=== PATIENT | female | born 1955 | race Caucasian/White ===

== ENCOUNTER 2022-03-16 07:19 | Inpatient (IN) ==
[2022-03-16] MEDS ORDERED: DILTIAZEM 25 MG/5 ML VIAL IV ONE (07:25)
[2022-03-16] MEDS ORDERED: SODIUM CHLORIDE 0.9% 1,000 ML IV STA (07:29)
[2022-03-16] MEDS ORDERED: DILTIAZEM 25 MG/5 ML VIAL IV STA (07:29)
[2022-03-16] MEDS ORDERED: methylPREDNISolone SOD SUC 125 MG/2 ML VIAL IV STA (07:30)
[2022-03-16] MEDS ORDERED: DILTIAZEM 100 MG VIAL.ADD IV ONE (07:31)
[2022-03-16] MEDS ORDERED: methylPREDNISolone SOD SUC 125 MG/2 ML VIAL ONE (07:37)
[2022-03-16] MEDS: DILTIAZEM INJ 100 MG in SODIUM CHLORIDE 0.9% 100 ML IV SCH (07:41)
[2022-03-16 07:42] LABS: Basophils # 0.1 10*3/uL (0.0-0.2); Basophils % 0.9 % (0.0-0.8); Eosinophils # 0.2 10*3/uL (0.0-0.87); Eosinophils % 2.6 % (0.00-10.9); Hematocrit 45.1 VOL% (35.7-47.0); Hemoglobin 13.9 GM/DL (12.0-16.0); Immature Granulocytes % 0.4 %; Immature Granulocytes Absolute 0.03 #; Lymphocytes # 3.5 10*3/uL (1.4-4.0); Lymphocytes % 44.4 % (21.3-54.2); Mean Corpuscular HGB Conc 30.8 GM/DL (32-36); Mean Corpuscular Volume 93.6 FL (87-102); Mean Platelet Volume 9.9 FL (9.6-12.0); Monocytes # 0.3 10*3/uL (0.11-0.8); Monocytes % 3.8 % (1.7-12.7); Neutrophils % 47.9 % (38.7-73.9); Platelet Count 213 T/CUMM (130-400); Red Blood Count 4.82 MC/CUMM (3.8-5.5); Red Cell Distribution Width 13.2 % (9.3-17.3); White Blood Count 7.8 T/CUMM (4-12)
[2022-03-16 08:13] LABS: Albumin 3.6 G/DL (3.4-5.0); Bilirubin,Total 0.9 MG/DL (0.20-1.00); Osmolality,Calculated 291.1 MOS/KG (273-304); Potassium 3.7 MMOL/L (3.5-5.1); Thyroid Stimulating Hormone 0.872 uIU/ml (0.358-3.74)
[2022-03-16] MEDS ORDERED: propofoL 200 MG/20 ML VIAL IV ONE ×2 (08:31→09:24)
[2022-03-16] MEDS ORDERED: ONDANSETRON 4 MG/2 ML VIAL IV PRN (08:47)
[2022-03-16] MEDS ORDERED: MORPHINE 2 MG/1 ML SYRINGE IV PRN (08:47)
[2022-03-16] MEDS ORDERED: ALBUTEROL 2.5 MG/3 ML NEB RESP TX PRN (08:47)
[2022-03-16] MEDS ORDERED: HYDROmorphone 1 MG/1 ML SYRINGE IV PRN (09:31)
[2022-03-16] MEDS: PANTOPRAZOLE 40 MG TABLET PO SCH (11:51)
[2022-03-16] MEDS: ENOXAPARIN 40 MG/0.4 ML SYRINGE SUBCUT SCH (11:51)
[2022-03-16] MEDS: LACTATED RINGERS 1,000 ML IV SCH (11:51)
[2022-03-16] MEDS: KETOROLAC 15 MG/1 ML VIAL IV PRN ×2 (11:54→17:17)
[2022-03-16 12:32] LABS: Barbiturates Screen,Urine Negative (Negative); Benzodiazepines Screen,Urine Negative (Negative); Cannabinoid Screen,Urine Negative (Negative); Opiate Screen,Urine Positive (Negative); Phencyclidine Screen,Urine Negative (Negative)
[2022-03-16] MEDS: ALBUTEROL/IPRATROPIUM 3 ML NEB RESP TX SCH ×2 (13:24→19:45)
[2022-03-16] MEDS ORDERED: GLUCAGON 1 MG VIAL IM PRN (13:42)
[2022-03-16] MEDS ORDERED: DEXTROSE 10% 250 ML BAG IV PRN (13:44)
[2022-03-17] MEDS: ALBUTEROL/IPRATROPIUM 3 ML NEB RESP TX SCH ×4 (00:20→19:30)
[2022-03-17] MEDS: KETOROLAC 15 MG/1 ML VIAL IV PRN (00:46)
[2022-03-17 01:19] LABS: Arterial Base Excess iSTAT -10 MMOL/L (-2.5-2.5); Arterial Bicarbonate iSTAT 15.2 MMOL/L (20-26); Arterial O2 Saturation iSTAT 79 % (95-100); Arterial PCO2 iSTAT 31 MM HG (35-48); Arterial PO2 iSTAT 47 MM HG (80-95); Arterial Total CO2 iSTAT 16 MMO/L (23-27); Arterial pH iSTAT 7.299 (7.35-7.45)
[2022-03-17] MEDS ORDERED: METOPROLOL TARTRATE 5 MG/5 ML VIAL IV ONE ×2 (01:32→01:34)
[2022-03-17] MEDS ORDERED: MORPHINE 2 MG/1 ML SYRINGE ONE (01:42)
[2022-03-17] MEDS ORDERED: MORPHINE 2 MG/1 ML SYRINGE IV ONE (01:43)
[2022-03-17] MEDS: LACTATED RINGERS 1,000 ML IV SCH (02:04)
[2022-03-17 02:18] LABS: Basophils % 0.2 % (0.0-0.8); Eosinophils % 0.1 % (0.00-10.9); Hematocrit 48.9 VOL% (35.7-47.0); Hemoglobin 15.1 GM/DL (12.0-16.0); Immature Granulocytes % 0.5 %; Immature Granulocytes Absolute 0.08 #; Lymphocytes # 2.5 10*3/uL (1.4-4.0); Lymphocytes % 14.6 % (21.3-54.2); Mean Corpuscular HGB Conc 30.9 GM/DL (32-36); Mean Platelet Volume 10.5 FL (9.6-12.0); Monocytes % 5.9 % (1.7-12.7); Neutrophils % 78.7 % (38.7-73.9); Platelet Count 276 T/CUMM (130-400); Red Cell Distribution Width 13.2 % (9.3-17.3); White Blood Count 17.2 T/CUMM (4-12)
[2022-03-17] MEDS: MEROPENEM 500 MG in SODIUM CHLORIDE 0.9% 100 ML IV SCH ×2 (02:19→09:11)
[2022-03-17 02:20] LABS: Albumin 3.4 G/DL (3.4-5.0); Bilirubin,Total 0.7 MG/DL (0.20-1.00); Calcium 8.7 MG/DL (8.5-10.1); Osmolality,Calculated 288.5 MOS/KG (273-304); Potassium 3.9 MMOL/L (3.5-5.1); Total Protein 6.9 G/DL (6.4-8.2)
[2022-03-17] MEDS ORDERED: SODIUM BICARB INJ 50 MEQ in SODIUM CHLORIDE 0.45% 1,000 ML IV SCH (03:00)
[2022-03-17] MEDS ORDERED: SODIUM BICARBONATE 50 MEQ/50 ML VIAL IV ONE (04:21)
[2022-03-17] MEDS ORDERED: SODIUM CHLORIDE 0.9% 1,000 ML IV ONE (04:22)
[2022-03-17 04:34] LABS: Arterial Base Excess iSTAT -8 MMOL/L (-2.5-2.5); Arterial O2 Saturation iSTAT 93 % (95-100); Arterial PCO2 iSTAT 37 MM HG (35-48); Arterial PO2 iSTAT 72 MM HG (80-95); Arterial Total CO2 iSTAT 19 MMO/L (23-27)
[2022-03-17] MEDS: LEVOTHYROXINE 125 MCG TABLET PO SCH (05:50)
[2022-03-17] MEDS: SODIUM CHLORIDE 0.9% 1,000 ML IV SCH ×2 (05:51→08:32)
[2022-03-17 06:12] LABS: Basophils % 0.1 % (0.0-0.8); Eosinophils % 0.1 % (0.00-10.9); Hematocrit 41.3 VOL% (35.7-47.0); Hemoglobin 12.8 GM/DL (12.0-16.0); Immature Granulocytes % 0.6 %; Immature Granulocytes Absolute 0.09 #; Lymphocytes # 1.2 10*3/uL (1.4-4.0); Lymphocytes % 7.5 % (21.3-54.2); Mean Corpuscular Volume 92.6 FL (87-102); Mean Platelet Volume 10.4 FL (9.6-12.0); Monocytes # 1.2 10*3/uL (0.11-0.8); Neutrophils % 84.7 % (38.7-73.9); Platelet Count 250 T/CUMM (130-400); Red Blood Count 4.46 MC/CUMM (3.8-5.5); Red Cell Distribution Width 13.5 % (9.3-17.3); White Blood Count 16.3 T/CUMM (4-12)
[2022-03-17 06:27] LABS: Albumin 2.7 G/DL (3.4-5.0); Bilirubin,Total 0.5 MG/DL (0.20-1.00); Calcium 7.3 MG/DL (8.5-10.1); Osmolality,Calculated 290.1 MOS/KG (273-304); Potassium 4.2 MMOL/L (3.5-5.1); Total Protein 5.3 G/DL (6.4-8.2)
[2022-03-17] MEDS ORDERED: SODIUM CHLORIDE 0.9% 1,000 ML IV SCH (07:00)
[2022-03-17] MEDS ORDERED: FUROSEMIDE 40 MG/4 ML VIAL IV ONE (07:55)
[2022-03-17] MEDS: DILTIAZEM INJ 100 MG in SODIUM CHLORIDE 0.9% 100 ML IV SCH (08:28)
[2022-03-17] MEDS: PANTOPRAZOLE 40 MG TABLET PO SCH (08:58)
[2022-03-17] MEDS: amLODIPine 5 MG TABLET PO SCH (08:59)
[2022-03-17] MEDS: ENOXAPARIN 40 MG/0.4 ML SYRINGE SUBCUT SCH (08:59)
[2022-03-17] MEDS: NON-FORMULARY MEDICATION (Fluticasone-Umeclidin-Vilanter [Trelegy Ellipta] 200-62.5-25 mcg INH SCH (09:11)
[2022-03-17] MEDS ORDERED: NICOTINE 21 MG/24 HR PATCH TRANSDERM PRN (09:37)
[2022-03-17] MEDS ORDERED: DEXTROSE 50% 25 GM/50 ML VIAL IV PRN (09:42)
[2022-03-17] MEDS: AZITHROMYCIN INJ 500 MG in SODIUM CHLORIDE 0.9% 250 ML IV SCH (09:46)
[2022-03-17 09:59] LABS: Bilirubin,Urine Negative (Negative); Blood, Urine Moderate mg/dL (Negative); Glucose,Urine (UA) Negative (Negative); Ketones,Urine Negative (Negative); Nitrite,Urine Negative (Negative); Protein,Urine 100 mg/dL (Negative); Urine Appearance Clear (Clear); Urine Color Yellow (Yellow); Urine Urobilinogen 0.2 eU/dL (<2.0); Urine pH 5.5 (4.5-8.0)
[2022-03-17 10:03] LABS: Mucus,Urine Occasional /LPF (Occasional); RBC,Urine 70 /HPF (0-4); Squamous Epithelial Cell,Urine Occasional /HPF (0-10)
[2022-03-17 10:53] LABS: Arterial Base Excess iSTAT -5 MMOL/L (-2.5-2.5); Arterial Bicarbonate iSTAT 20.4 MMOL/L (20-26); Arterial O2 Saturation iSTAT 99 % (95-100); Arterial PCO2 iSTAT 39 MM HG (35-48); Arterial PO2 iSTAT 134 MM HG (80-95); Arterial Total CO2 iSTAT 22 MMO/L (23-27); Arterial pH iSTAT 7.324 (7.35-7.45)
[2022-03-17] MEDS: INSULIN LISPRO 100 UNIT/ML SUBCUT SCH ×3 (11:03→20:46)
[2022-03-17] MEDS: cefTRIAXone 1,000 MG in SODIUM CHLORIDE 0.9% 100 ML IV SCH (11:18)
[2022-03-17 15:32] LABS: Osmolality,Calculated 284.4 MOS/KG (273-304); Potassium 3.7 MMOL/L (3.5-5.1)
[2022-03-18] MEDS: ALBUTEROL/IPRATROPIUM 3 ML NEB RESP TX SCH ×4 (00:40→19:40)
[2022-03-18 04:04] LABS: Arterial Base Excess iSTAT -3 MMOL/L (-2.5-2.5); Arterial Bicarbonate iSTAT 20.8 MMOL/L (20-26); Arterial O2 Saturation iSTAT 89 % (95-100); Arterial PCO2 iSTAT 31 MM HG (35-48); Arterial PO2 iSTAT 53 MM HG (80-95); Arterial Total CO2 iSTAT 22 MMO/L (23-27); Arterial pH iSTAT 7.436 (7.35-7.45)
[2022-03-18 05:17] LABS: Basophils % 0.2 % (0.0-0.8); Eosinophils % 0.1 % (0.00-10.9); Hematocrit 38.2 VOL% (35.7-47.0); Hemoglobin 11.7 GM/DL (12.0-16.0); Immature Granulocytes % 0.5 %; Immature Granulocytes Absolute 0.05 #; Lymphocytes % 9.8 % (21.3-54.2); Mean Corpuscular HGB Conc 30.6 GM/DL (32-36); Mean Corpuscular Volume 92.5 FL (87-102); Mean Platelet Volume 10.5 FL (9.6-12.0); Monocytes # 0.8 10*3/uL (0.11-0.8); Monocytes % 7.2 % (1.7-12.7); Neutrophils % 82.2 % (38.7-73.9); Platelet Count 175 T/CUMM (130-400); Red Blood Count 4.13 MC/CUMM (3.8-5.5); Red Cell Distribution Width 13.5 % (9.3-17.3); White Blood Count 10.5 T/CUMM (4-12)
[2022-03-18 05:51] LABS: Albumin 2.8 G/DL (3.4-5.0); Bilirubin,Total 0.7 MG/DL (0.20-1.00); Calcium 8.1 MG/DL (8.5-10.1); Osmolality,Calculated 284.3 MOS/KG (273-304); Potassium 3.4 MMOL/L (3.5-5.1); Risk Ratio 3.24; Total Protein 5.7 G/DL (6.4-8.2); VLDL Cholesterol 26.6 MG/DL
[2022-03-18] MEDS: LEVOTHYROXINE 125 MCG TABLET PO SCH (06:14)
[2022-03-18] MEDS ORDERED: FUROSEMIDE 40 MG/4 ML VIAL IV ONE (06:34)
[2022-03-18] MEDS: methylPREDNISolone SOD SUC 40 MG/1 ML VIAL IV SCH ×3 (06:56→22:21)
[2022-03-18] MEDS: DILTIAZEM INJ 100 MG in SODIUM CHLORIDE 0.9% 100 ML IV SCH (08:10)
[2022-03-18] MEDS: INSULIN LISPRO 100 UNIT/ML SUBCUT SCH ×4 (09:02→21:23)
[2022-03-18] MEDS: NON-FORMULARY MEDICATION (Fluticasone-Umeclidin-Vilanter [Trelegy Ellipta] 200-62.5-25 mcg INH SCH (09:03)
[2022-03-18] MEDS: ENOXAPARIN 40 MG/0.4 ML SYRINGE SUBCUT SCH (09:06)
[2022-03-18] MEDS: cefTRIAXone 1,000 MG in SODIUM CHLORIDE 0.9% 100 ML IV SCH (09:06)
[2022-03-18] MEDS: PANTOPRAZOLE 40 MG TABLET PO SCH (09:07)
[2022-03-18] MEDS: AZITHROMYCIN INJ 500 MG in SODIUM CHLORIDE 0.9% 250 ML IV SCH (09:07)
[2022-03-18] MEDS: amLODIPine 5 MG TABLET PO SCH ×2 (09:07→09:09)
[2022-03-18 09:43] LABS: Arterial Base Excess iSTAT -10 MMOL/L (-2.5-2.5); Arterial Bicarbonate iSTAT 17.8 MMOL/L (20-26); Arterial O2 Saturation iSTAT 92 % (95-100); Arterial PCO2 iSTAT 43 MM HG (35-48); Arterial PO2 iSTAT 77 MM HG (80-95); Arterial Total CO2 iSTAT 19 MMO/L (23-27); Arterial pH iSTAT 7.228 (7.35-7.45)
[2022-03-18] MEDS: POTASSIUM CHLORIDE 20 MEQ TABLET PO PRN ×2 (14:32→16:15)
[2022-03-18] MEDS ORDERED: DILTIAZEM 30 MG TABLET PO SCH (15:00)
[2022-03-18] MEDS: METOPROLOL TARTRATE 25 MG TABLET PO SCH ×2 (15:32→21:14)
[2022-03-19 04:17] LABS: Arterial Base Excess iSTAT 2 MMOL/L (-2.5-2.5); Arterial O2 Saturation iSTAT 99 % (95-100); Arterial PCO2 iSTAT 35 MM HG (35-48); Arterial PO2 iSTAT 121 MM HG (80-95); Arterial Total CO2 iSTAT 26 MMO/L (23-27); Arterial pH iSTAT 7.467 (7.35-7.45)
[2022-03-19 05:26] LABS: Basophils % 0.1 % (0.0-0.8); Hematocrit 37.5 VOL% (35.7-47.0); Hemoglobin 11.9 GM/DL (12.0-16.0); Immature Granulocytes % 0.4 %; Immature Granulocytes Absolute 0.04 #; Lymphocytes # 0.9 10*3/uL (1.4-4.0); Lymphocytes % 10.1 % (21.3-54.2); Mean Corpuscular HGB Conc 31.7 GM/DL (32-36); Mean Platelet Volume 11.1 FL (9.6-12.0); Monocytes # 0.5 10*3/uL (0.11-0.8); Monocytes % 5.8 % (1.7-12.7); Neutrophils % 83.6 % (38.7-73.9); Platelet Count 180 T/CUMM (130-400); Red Blood Count 4.12 MC/CUMM (3.8-5.5); Red Cell Distribution Width 13.5 % (9.3-17.3); White Blood Count 8.9 T/CUMM (4-12)
[2022-03-19] MEDS: LEVOTHYROXINE 125 MCG TABLET PO SCH (05:38)
[2022-03-19 05:51] LABS: Osmolality,Calculated 285.3 MOS/KG (273-304)
[2022-03-19] MEDS: methylPREDNISolone SOD SUC 40 MG/1 ML VIAL IV SCH ×3 (06:53→22:06)
[2022-03-19] MEDS: ALBUTEROL/IPRATROPIUM 3 ML NEB RESP TX SCH ×4 (07:30→19:20)
[2022-03-19] MEDS: cefTRIAXone 1,000 MG in SODIUM CHLORIDE 0.9% 100 ML IV SCH (09:27)
[2022-03-19] MEDS: AZITHROMYCIN INJ 500 MG in SODIUM CHLORIDE 0.9% 250 ML IV SCH (09:27)
[2022-03-19] MEDS: INSULIN LISPRO 100 UNIT/ML SUBCUT SCH ×4 (09:28→20:37)
[2022-03-19] MEDS: PANTOPRAZOLE 40 MG TABLET PO SCH (09:29)
[2022-03-19] MEDS: NON-FORMULARY MEDICATION (Fluticasone-Umeclidin-Vilanter [Trelegy Ellipta] 200-62.5-25 mcg INH SCH (09:29)
[2022-03-19] MEDS: ENOXAPARIN 40 MG/0.4 ML SYRINGE SUBCUT SCH (09:29)
[2022-03-19] MEDS: METOPROLOL SUCCINATE XL 25 MG TABLET PO SCH ×2 (09:29→20:37)
[2022-03-20] MEDS: ALBUTEROL/IPRATROPIUM 3 ML NEB RESP TX SCH ×4 (00:40→19:47)
[2022-03-20 05:17] LABS: Basophils % 0.1 % (0.0-0.8); Hematocrit 38.4 VOL% (35.7-47.0); Immature Granulocytes % 0.3 %; Immature Granulocytes Absolute 0.03 #; Lymphocytes % 11.3 % (21.3-54.2); Mean Corpuscular HGB Conc 31.3 GM/DL (32-36); Mean Corpuscular Volume 92.1 FL (87-102); Monocytes # 0.5 10*3/uL (0.11-0.8); Monocytes % 5.8 % (1.7-12.7); Neutrophils % 82.5 % (38.7-73.9); Platelet Count 194 T/CUMM (130-400); Red Blood Count 4.17 MC/CUMM (3.8-5.5); Red Cell Distribution Width 13.4 % (9.3-17.3); White Blood Count 9.2 T/CUMM (4-12)
[2022-03-20 05:33] LABS: Calcium 8.5 MG/DL (8.5-10.1); Osmolality,Calculated 287.3 MOS/KG (273-304)
[2022-03-20] MEDS: LEVOTHYROXINE 125 MCG TABLET PO SCH (05:43)
[2022-03-20] MEDS: methylPREDNISolone SOD SUC 40 MG/1 ML VIAL IV SCH ×3 (06:00→23:07)
[2022-03-20] MEDS: INSULIN LISPRO 100 UNIT/ML SUBCUT SCH ×4 (08:01→23:12)
[2022-03-20] MEDS: METOPROLOL SUCCINATE XL 25 MG TABLET PO SCH ×2 (09:35→21:40)
[2022-03-20] MEDS: PANTOPRAZOLE 40 MG TABLET PO SCH (09:35)
[2022-03-20] MEDS: FUROSEMIDE 40 MG TABLET PO SCH (09:35)
[2022-03-20] MEDS: ENOXAPARIN 40 MG/0.4 ML SYRINGE SUBCUT SCH (09:37)
[2022-03-20] MEDS: cefTRIAXone 1,000 MG in SODIUM CHLORIDE 0.9% 100 ML IV SCH (09:38)
[2022-03-20] MEDS: AZITHROMYCIN INJ 500 MG in SODIUM CHLORIDE 0.9% 250 ML IV SCH (10:41)
[2022-03-20] MEDS: NON-FORMULARY MEDICATION (Fluticasone-Umeclidin-Vilanter [Trelegy Ellipta] 200-62.5-25 mcg INH SCH (10:42)
[2022-03-21] MEDS: ALBUTEROL/IPRATROPIUM 3 ML NEB RESP TX SCH ×4 (00:37→19:30)
[2022-03-21 06:04] LABS: Hematocrit 38.7 VOL% (35.7-47.0); Hemoglobin 12.1 GM/DL (12.0-16.0); Immature Granulocytes % 0.5 %; Immature Granulocytes Absolute 0.04 #; Lymphocytes % 12.1 % (21.3-54.2); Mean Corpuscular HGB Conc 31.3 GM/DL (32-36); Mean Corpuscular Volume 92.8 FL (87-102); Mean Platelet Volume 11.3 FL (9.6-12.0); Monocytes # 0.4 10*3/uL (0.11-0.8); Monocytes % 5.6 % (1.7-12.7); Neutrophils % 81.8 % (38.7-73.9); Platelet Count 202 T/CUMM (130-400); Red Blood Count 4.17 MC/CUMM (3.8-5.5); Red Cell Distribution Width 13.5 % (9.3-17.3); White Blood Count 7.8 T/CUMM (4-12)
[2022-03-21] MEDS: methylPREDNISolone SOD SUC 40 MG/1 ML VIAL IV SCH ×2 (06:04→15:15)
[2022-03-21] MEDS: LEVOTHYROXINE 125 MCG TABLET PO SCH (06:04)
[2022-03-21 06:22] LABS: Calcium 8.6 MG/DL (8.5-10.1); Osmolality,Calculated 297.7 MOS/KG (273-304); Potassium 4.4 MMOL/L (3.5-5.1)
[2022-03-21] MEDS: FUROSEMIDE 40 MG TABLET PO SCH (10:08)
[2022-03-21] MEDS: INSULIN LISPRO 100 UNIT/ML SUBCUT SCH ×4 (10:08→21:50)
[2022-03-21] MEDS: NON-FORMULARY MEDICATION (Fluticasone-Umeclidin-Vilanter [Trelegy Ellipta] 200-62.5-25 mcg INH SCH (10:09)
[2022-03-21] MEDS: cefTRIAXone 1,000 MG in SODIUM CHLORIDE 0.9% 100 ML IV SCH (10:09)
[2022-03-21] MEDS: PANTOPRAZOLE 40 MG TABLET PO SCH (10:09)
[2022-03-21] MEDS: METOPROLOL SUCCINATE XL 25 MG TABLET PO SCH (10:09)
[2022-03-21] MEDS: ENOXAPARIN 40 MG/0.4 ML SYRINGE SUBCUT SCH (10:10)
[2022-03-21] MEDS: AZITHROMYCIN INJ 500 MG in SODIUM CHLORIDE 0.9% 250 ML IV SCH (11:34)
[2022-03-21] MEDS: SACUBITRIL/VALSARTAN 49-51 MG TABLET PO SCH (21:50)
[2022-03-22] MEDS: METOPROLOL SUCCINATE XL 25 MG TABLET PO SCH ×3 (00:21→21:24)
[2022-03-22] MEDS: ALBUTEROL/IPRATROPIUM 3 ML NEB RESP TX SCH ×4 (00:25→19:15)
[2022-03-22] MEDS: methylPREDNISolone SOD SUC 40 MG/1 ML VIAL IV SCH ×4 (00:31→22:47)
[2022-03-22 04:58] LABS: Basophils % 0.1 % (0.0-0.8); Eosinophils % 0.1 % (0.00-10.9); Hematocrit 39.5 VOL% (35.7-47.0); Hemoglobin 12.4 GM/DL (12.0-16.0); Immature Granulocytes % 0.5 %; Immature Granulocytes Absolute 0.05 #; Lymphocytes # 1.2 10*3/uL (1.4-4.0); Lymphocytes % 13.3 % (21.3-54.2); Mean Corpuscular HGB Conc 31.4 GM/DL (32-36); Mean Corpuscular Volume 91.4 FL (87-102); Mean Platelet Volume 11.2 FL (9.6-12.0); Monocytes # 0.7 10*3/uL (0.11-0.8); Monocytes % 7.4 % (1.7-12.7); Neutrophils % 78.6 % (38.7-73.9); Platelet Count 211 T/CUMM (130-400); Red Blood Count 4.32 MC/CUMM (3.8-5.5); Red Cell Distribution Width 13.4 % (9.3-17.3); White Blood Count 9.1 T/CUMM (4-12)
[2022-03-22 05:09] LABS: Calcium 8.3 MG/DL (8.5-10.1); Osmolality,Calculated 289.3 MOS/KG (273-304); Potassium 4.1 MMOL/L (3.5-5.1)
[2022-03-22] MEDS: LEVOTHYROXINE 125 MCG TABLET PO SCH (05:56)
[2022-03-22] MEDS: INSULIN LISPRO 100 UNIT/ML SUBCUT SCH ×4 (08:05→21:47)
[2022-03-22] MEDS: ENOXAPARIN 40 MG/0.4 ML SYRINGE SUBCUT SCH (08:58)
[2022-03-22] MEDS: FUROSEMIDE 40 MG TABLET PO SCH (08:59)
[2022-03-22] MEDS: SACUBITRIL/VALSARTAN 49-51 MG TABLET PO SCH ×2 (08:59→21:25)
[2022-03-22] MEDS: NON-FORMULARY MEDICATION (Fluticasone-Umeclidin-Vilanter [Trelegy Ellipta] 200-62.5-25 mcg INH SCH (08:59)
[2022-03-22] MEDS: PANTOPRAZOLE 40 MG TABLET PO SCH (08:59)
[2022-03-22] MEDS: cefTRIAXone 1,000 MG in SODIUM CHLORIDE 0.9% 100 ML IV SCH (09:03)
[2022-03-22] MEDS: AZITHROMYCIN INJ 500 MG in SODIUM CHLORIDE 0.9% 250 ML IV SCH (09:56)
[2022-03-22] MEDS ORDERED: HYDROmorphone 1 MG/1 ML SYRINGE IV PRN (13:49)
[2022-03-23] MEDS: ALBUTEROL/IPRATROPIUM 3 ML NEB RESP TX SCH ×4 (00:29→19:21)
[2022-03-23] MEDS: LEVOTHYROXINE 125 MCG TABLET PO SCH (06:07)
[2022-03-23] MEDS: methylPREDNISolone SOD SUC 40 MG/1 ML VIAL IV SCH ×2 (06:10→17:13)
[2022-03-23] MEDS: INSULIN LISPRO 100 UNIT/ML SUBCUT SCH ×4 (09:25→20:20)
[2022-03-23] MEDS: ENOXAPARIN 40 MG/0.4 ML SYRINGE SUBCUT SCH (09:28)
[2022-03-23] MEDS: PANTOPRAZOLE 40 MG TABLET PO SCH (09:28)
[2022-03-23] MEDS: METOPROLOL SUCCINATE XL 25 MG TABLET PO SCH ×2 (09:28→20:24)
[2022-03-23] MEDS: NON-FORMULARY MEDICATION (Fluticasone-Umeclidin-Vilanter [Trelegy Ellipta] 200-62.5-25 mcg INH SCH (09:28)
[2022-03-23] MEDS: FUROSEMIDE 40 MG TABLET PO SCH (09:28)
[2022-03-23] MEDS: SACUBITRIL/VALSARTAN 49-51 MG TABLET PO SCH ×2 (09:28→20:24)
[2022-03-23] MEDS: cefTRIAXone 1,000 MG in SODIUM CHLORIDE 0.9% 100 ML IV SCH (09:29)
[2022-03-23] MEDS: AZITHROMYCIN INJ 500 MG in SODIUM CHLORIDE 0.9% 250 ML IV SCH (10:20)
[2022-03-24] MEDS: ALBUTEROL/IPRATROPIUM 3 ML NEB RESP TX SCH ×4 (00:17→19:10)
[2022-03-24 05:28] LABS: Basophils % 0.1 % (0.0-0.8); Hematocrit 42.3 VOL% (35.7-47.0); Hemoglobin 13.5 GM/DL (12.0-16.0); Immature Granulocytes % 0.7 %; Immature Granulocytes Absolute 0.08 #; Lymphocytes # 2.1 10*3/uL (1.4-4.0); Mean Corpuscular HGB Conc 31.9 GM/DL (32-36); Mean Platelet Volume 10.6 FL (9.6-12.0); Monocytes # 0.9 10*3/uL (0.11-0.8); Monocytes % 7.7 % (1.7-12.7); Neutrophils % 72.5 % (38.7-73.9); Platelet Count 265 T/CUMM (130-400); Red Cell Distribution Width 13.4 % (9.3-17.3)
[2022-03-24 05:47] LABS: Calcium 8.2 MG/DL (8.5-10.1); Osmolality,Calculated 287.3 MOS/KG (273-304); Potassium 4.4 MMOL/L (3.5-5.1)
[2022-03-24] MEDS: methylPREDNISolone SOD SUC 40 MG/1 ML VIAL IV SCH ×2 (06:08→17:21)
[2022-03-24] MEDS: LEVOTHYROXINE 125 MCG TABLET PO SCH (06:08)
[2022-03-24] MEDS: NON-FORMULARY MEDICATION (Fluticasone-Umeclidin-Vilanter [Trelegy Ellipta] 200-62.5-25 mcg INH SCH (09:30)
[2022-03-24] MEDS: METOPROLOL SUCCINATE XL 25 MG TABLET PO SCH ×2 (09:31→21:19)
[2022-03-24] MEDS: cefTRIAXone 1,000 MG in SODIUM CHLORIDE 0.9% 100 ML IV SCH (09:31)
[2022-03-24] MEDS: SACUBITRIL/VALSARTAN 49-51 MG TABLET PO SCH ×2 (09:31→21:18)
[2022-03-24] MEDS: FUROSEMIDE 40 MG TABLET PO SCH (09:31)
[2022-03-24] MEDS: ENOXAPARIN 40 MG/0.4 ML SYRINGE SUBCUT SCH (09:31)
[2022-03-24] MEDS: PANTOPRAZOLE 40 MG TABLET PO SCH (09:31)
[2022-03-24] MEDS: INSULIN LISPRO 100 UNIT/ML SUBCUT SCH ×4 (09:38→21:19)
[2022-03-24] MEDS: AZITHROMYCIN INJ 500 MG in SODIUM CHLORIDE 0.9% 250 ML IV SCH (10:18)
[2022-03-25] MEDS: ALBUTEROL/IPRATROPIUM 3 ML NEB RESP TX SCH ×4 (00:06→19:27)
[2022-03-25 05:20] LABS: Basophils % 0.2 % (0.0-0.8); Eosinophils % 0.3 % (0.00-10.9); Hematocrit 44.6 VOL% (35.7-47.0); Hemoglobin 13.9 GM/DL (12.0-16.0); Immature Granulocytes % 1.1 %; Immature Granulocytes Absolute 0.11 #; Lymphocytes # 1.8 10*3/uL (1.4-4.0); Lymphocytes % 17.6 % (21.3-54.2); Mean Corpuscular HGB Conc 31.2 GM/DL (32-36); Mean Corpuscular Volume 91.6 FL (87-102); Mean Platelet Volume 9.9 FL (9.6-12.0); Monocytes # 0.9 10*3/uL (0.11-0.8); Monocytes % 8.4 % (1.7-12.7); Neutrophils % 72.4 % (38.7-73.9); Platelet Count 287 T/CUMM (130-400); Red Blood Count 4.87 MC/CUMM (3.8-5.5); Red Cell Distribution Width 13.4 % (9.3-17.3); White Blood Count 10.4 T/CUMM (4-12)
[2022-03-25] MEDS: LEVOTHYROXINE 125 MCG TABLET PO SCH (05:43)
[2022-03-25] MEDS: methylPREDNISolone SOD SUC 40 MG/1 ML VIAL IV SCH ×3 (05:44→21:10)
[2022-03-25 05:47] LABS: Calcium 9.2 MG/DL (8.5-10.1); Osmolality,Calculated 285.4 MOS/KG (273-304); Potassium 4.4 MMOL/L (3.5-5.1)
[2022-03-25] MEDS: INSULIN LISPRO 100 UNIT/ML SUBCUT SCH ×4 (07:57→21:11)
[2022-03-25] MEDS: SACUBITRIL/VALSARTAN 49-51 MG TABLET PO SCH ×2 (08:42→21:09)
[2022-03-25] MEDS: FUROSEMIDE 40 MG TABLET PO SCH (08:43)
[2022-03-25] MEDS: METOPROLOL SUCCINATE XL 25 MG TABLET PO SCH ×2 (08:43→21:10)
[2022-03-25] MEDS: PANTOPRAZOLE 40 MG TABLET PO SCH (08:43)
[2022-03-25] MEDS: ENOXAPARIN 40 MG/0.4 ML SYRINGE SUBCUT SCH ×2 (08:43→08:45)
[2022-03-25] MEDS: NON-FORMULARY MEDICATION (Fluticasone-Umeclidin-Vilanter [Trelegy Ellipta] 200-62.5-25 mcg INH SCH (08:43)
[2022-03-25] MEDS ORDERED: GLUCAGON 1 MG VIAL IM PRN (12:27)
[2022-03-25] MEDS ORDERED: DEXTROSE 50% 25 GM/50 ML VIAL IV PRN (12:27)
[2022-03-25] MEDS ORDERED: DOXYCYCLINE HYCLATE INJ 200 MG, LIDOCAINE 1% INJ 20 ML in STERILE WATER INJ 30 ML INTRAPLEUR ONE (14:00)
[2022-03-26] MEDS: ALBUTEROL/IPRATROPIUM 3 ML NEB RESP TX SCH ×4 (00:07→19:42)
[2022-03-26] MEDS: LEVOTHYROXINE 125 MCG TABLET PO SCH (05:34)
[2022-03-26 06:26] LABS: Basophils % 0.1 % (0.0-0.8); Eosinophils % 0.1 % (0.00-10.9); Hematocrit 47.5 VOL% (35.7-47.0); Hemoglobin 14.8 GM/DL (12.0-16.0); Immature Granulocytes % 0.9 %; Immature Granulocytes Absolute 0.12 #; Lymphocytes # 1.7 10*3/uL (1.4-4.0); Lymphocytes % 12.2 % (21.3-54.2); Mean Corpuscular HGB Conc 31.2 GM/DL (32-36); Mean Corpuscular Volume 92.2 FL (87-102); Mean Platelet Volume 9.9 FL (9.6-12.0); Monocytes % 6.9 % (1.7-12.7); Neutrophils % 79.8 % (38.7-73.9); Platelet Count 334 T/CUMM (130-400); Red Blood Count 5.15 MC/CUMM (3.8-5.5); Red Cell Distribution Width 13.7 % (9.3-17.3); White Blood Count 14.1 T/CUMM (4-12)
[2022-03-26 06:45] LABS: Calcium 8.9 MG/DL (8.5-10.1); Osmolality,Calculated 283.7 MOS/KG (273-304); Potassium 4.7 MMOL/L (3.5-5.1)
[2022-03-26] MEDS: INSULIN LISPRO 100 UNIT/ML SUBCUT SCH ×4 (08:23→20:53)
[2022-03-26] MEDS: SACUBITRIL/VALSARTAN 49-51 MG TABLET PO SCH ×2 (09:41→20:53)
[2022-03-26] MEDS: METOPROLOL SUCCINATE XL 25 MG TABLET PO SCH ×2 (09:41→20:54)
[2022-03-26] MEDS: FUROSEMIDE 40 MG TABLET PO SCH (09:41)
[2022-03-26] MEDS: ENOXAPARIN 40 MG/0.4 ML SYRINGE SUBCUT SCH (09:41)
[2022-03-26] MEDS: PANTOPRAZOLE 40 MG TABLET PO SCH (09:41)
[2022-03-26] MEDS: DAPAGLIFLOZIN 10 MG TABLET PO SCH (09:41)
[2022-03-26] MEDS: methylPREDNISolone SOD SUC 40 MG/1 ML VIAL IV SCH ×2 (09:42→21:30)
[2022-03-26] MEDS: NON-FORMULARY MEDICATION (Fluticasone-Umeclidin-Vilanter [Trelegy Ellipta] 200-62.5-25 mcg INH SCH (09:42)
[2022-03-27] MEDS: ALBUTEROL/IPRATROPIUM 3 ML NEB RESP TX SCH ×4 (00:52→19:10)
[2022-03-27] MEDS: LEVOTHYROXINE 125 MCG TABLET PO SCH (05:35)
[2022-03-27] MEDS: INSULIN LISPRO 100 UNIT/ML SUBCUT SCH ×4 (07:53→21:00)
[2022-03-27] MEDS: SACUBITRIL/VALSARTAN 49-51 MG TABLET PO SCH ×2 (08:42→20:59)
[2022-03-27] MEDS: PANTOPRAZOLE 40 MG TABLET PO SCH (08:42)
[2022-03-27] MEDS: FUROSEMIDE 40 MG TABLET PO SCH (08:42)
[2022-03-27] MEDS: DAPAGLIFLOZIN 10 MG TABLET PO SCH (08:42)
[2022-03-27] MEDS: METOPROLOL SUCCINATE XL 25 MG TABLET PO SCH ×2 (08:42→20:59)
[2022-03-27] MEDS: ENOXAPARIN 40 MG/0.4 ML SYRINGE SUBCUT SCH (08:43)
[2022-03-27] MEDS: NON-FORMULARY MEDICATION (Fluticasone-Umeclidin-Vilanter [Trelegy Ellipta] 200-62.5-25 mcg INH SCH (08:45)
[2022-03-27] MEDS: methylPREDNISolone SOD SUC 40 MG/1 ML VIAL IV SCH (09:07)
[2022-03-28] MEDS: ALBUTEROL/IPRATROPIUM 3 ML NEB RESP TX SCH ×4 (00:15→18:55)
[2022-03-28 05:25] LABS: Calcium 8.7 MG/DL (8.5-10.1); Osmolality,Calculated 292.3 MOS/KG (273-304); Potassium 3.9 MMOL/L (3.5-5.1)
[2022-03-28] MEDS: LEVOTHYROXINE 125 MCG TABLET PO SCH (05:34)
[2022-03-28] MEDS: SACUBITRIL/VALSARTAN 49-51 MG TABLET PO SCH ×2 (09:15→20:46)
[2022-03-28] MEDS: ENOXAPARIN 40 MG/0.4 ML SYRINGE SUBCUT SCH (09:15)
[2022-03-28] MEDS: DAPAGLIFLOZIN 10 MG TABLET PO SCH (09:15)
[2022-03-28] MEDS: METOPROLOL SUCCINATE XL 25 MG TABLET PO SCH ×2 (09:16→20:47)
[2022-03-28] MEDS: CHOLECALCIFEROL 5,000 UNIT TABLET PO SCH (09:16)
[2022-03-28] MEDS: PANTOPRAZOLE 40 MG TABLET PO SCH (09:16)
[2022-03-28] MEDS: INSULIN LISPRO 100 UNIT/ML SUBCUT SCH ×4 (09:16→20:46)
[2022-03-28] MEDS: predniSONE 20 MG TABLET PO SCH (09:16)
[2022-03-28] MEDS: FUROSEMIDE 40 MG TABLET PO SCH (09:16)
[2022-03-28] MEDS: NON-FORMULARY MEDICATION (Fluticasone-Umeclidin-Vilanter [Trelegy Ellipta] 200-62.5-25 mcg INH SCH (09:18)
[2022-03-29] MEDS: ALBUTEROL/IPRATROPIUM 3 ML NEB RESP TX SCH ×4 (00:10→19:35)
[2022-03-29] MEDS: LEVOTHYROXINE 125 MCG TABLET PO SCH (05:30)
[2022-03-29] MEDS: INSULIN LISPRO 100 UNIT/ML SUBCUT SCH ×4 (08:02→22:13)
[2022-03-29] MEDS: PANTOPRAZOLE 40 MG TABLET PO SCH (08:59)
[2022-03-29] MEDS: ENOXAPARIN 40 MG/0.4 ML SYRINGE SUBCUT SCH (09:00)
[2022-03-29] MEDS: CHOLECALCIFEROL 5,000 UNIT TABLET PO SCH (09:00)
[2022-03-29] MEDS: predniSONE 20 MG TABLET PO SCH (09:00)
[2022-03-29] MEDS: DAPAGLIFLOZIN 10 MG TABLET PO SCH (09:57)
[2022-03-29] MEDS: NON-FORMULARY MEDICATION (Fluticasone-Umeclidin-Vilanter [Trelegy Ellipta] 200-62.5-25 mcg INH SCH (09:58)
[2022-03-29] MEDS: SACUBITRIL/VALSARTAN 49-51 MG TABLET PO SCH ×2 (10:19→21:36)
[2022-03-29] MEDS: FUROSEMIDE 40 MG TABLET PO SCH (10:19)
[2022-03-29] MEDS: METOPROLOL SUCCINATE XL 25 MG TABLET PO SCH ×2 (10:20→21:37)
[2022-03-30] MEDS: ALBUTEROL/IPRATROPIUM 3 ML NEB RESP TX SCH ×4 (00:24→19:30)
[2022-03-30] MEDS: LEVOTHYROXINE 125 MCG TABLET PO SCH (06:10)
[2022-03-30] MEDS: INSULIN LISPRO 100 UNIT/ML SUBCUT SCH ×3 (07:38→19:07)
[2022-03-30] MEDS: CHOLECALCIFEROL 5,000 UNIT TABLET PO SCH (08:48)
[2022-03-30] MEDS: predniSONE 20 MG TABLET PO SCH (08:48)
[2022-03-30] MEDS: ENOXAPARIN 40 MG/0.4 ML SYRINGE SUBCUT SCH (08:49)
[2022-03-30] MEDS: SACUBITRIL/VALSARTAN 49-51 MG TABLET PO SCH ×2 (08:49→21:45)
[2022-03-30] MEDS: PANTOPRAZOLE 40 MG TABLET PO SCH (08:49)
[2022-03-30] MEDS: METOPROLOL SUCCINATE XL 25 MG TABLET PO SCH (08:49)
[2022-03-30] MEDS: DAPAGLIFLOZIN 10 MG TABLET PO SCH (08:49)
[2022-03-30] MEDS: NON-FORMULARY MEDICATION (Fluticasone-Umeclidin-Vilanter [Trelegy Ellipta] 200-62.5-25 mcg INH SCH (08:50)
[2022-03-31] MEDS: ALBUTEROL/IPRATROPIUM 3 ML NEB RESP TX SCH ×4 (00:18→19:40)
[2022-03-31] MEDS: METOPROLOL SUCCINATE XL 25 MG TABLET PO SCH ×3 (00:44→22:05)
[2022-03-31] MEDS: INSULIN LISPRO 100 UNIT/ML SUBCUT SCH ×5 (00:44→20:39)
[2022-03-31] MEDS: LEVOTHYROXINE 125 MCG TABLET PO SCH (06:10)
[2022-03-31 06:33] LABS: Basophils % 0.3 % (0.0-0.8); Eosinophils # 0.4 10*3/uL (0.0-0.87); Eosinophils % 5.7 % (0.00-10.9); Hemoglobin 12.9 GM/DL (12.0-16.0); Immature Granulocytes % 0.7 %; Immature Granulocytes Absolute 0.05 #; Lymphocytes # 2.1 10*3/uL (1.4-4.0); Lymphocytes % 28.6 % (21.3-54.2); Mean Corpuscular HGB Conc 31.5 GM/DL (32-36); Mean Corpuscular Volume 92.1 FL (87-102); Mean Platelet Volume 9.4 FL (9.6-12.0); Monocytes # 0.7 10*3/uL (0.11-0.8); Monocytes % 9.4 % (1.7-12.7); Neutrophils % 55.3 % (38.7-73.9); Platelet Count 223 T/CUMM (130-400); Red Blood Count 4.45 MC/CUMM (3.8-5.5); Red Cell Distribution Width 13.6 % (9.3-17.3); White Blood Count 7.2 T/CUMM (4-12)
[2022-03-31 06:48] LABS: Calcium 8.4 MG/DL (8.5-10.1); Osmolality,Calculated 290.7 MOS/KG (273-304); Potassium 3.8 MMOL/L (3.5-5.1)
[2022-03-31] MEDS: POTASSIUM CHLORIDE 20 MEQ TABLET PO PRN (08:05)
[2022-03-31] MEDS: CHOLECALCIFEROL 5,000 UNIT TABLET PO SCH (08:05)
[2022-03-31] MEDS: predniSONE 20 MG TABLET PO SCH (08:05)
[2022-03-31] MEDS: PANTOPRAZOLE 40 MG TABLET PO SCH (08:05)
[2022-03-31] MEDS: DAPAGLIFLOZIN 10 MG TABLET PO SCH (08:06)
[2022-03-31] MEDS: SACUBITRIL/VALSARTAN 49-51 MG TABLET PO SCH ×2 (08:06→20:34)
[2022-03-31] MEDS: ENOXAPARIN 40 MG/0.4 ML SYRINGE SUBCUT SCH (08:06)
[2022-03-31] MEDS: NON-FORMULARY MEDICATION (Fluticasone-Umeclidin-Vilanter [Trelegy Ellipta] 200-62.5-25 mcg INH SCH (08:07)
[2022-04-01] MEDS: ALBUTEROL/IPRATROPIUM 3 ML NEB RESP TX SCH ×4 (01:03→19:58)
[2022-04-01] MEDS: LEVOTHYROXINE 125 MCG TABLET PO SCH (06:43)
[2022-04-01] MEDS: predniSONE 20 MG TABLET PO SCH (09:10)
[2022-04-01] MEDS: CHOLECALCIFEROL 5,000 UNIT TABLET PO SCH (09:10)
[2022-04-01] MEDS: ENOXAPARIN 40 MG/0.4 ML SYRINGE SUBCUT SCH (09:10)
[2022-04-01] MEDS: DAPAGLIFLOZIN 10 MG TABLET PO SCH (09:10)
[2022-04-01] MEDS: PANTOPRAZOLE 40 MG TABLET PO SCH (09:10)
[2022-04-01] MEDS: NON-FORMULARY MEDICATION (Fluticasone-Umeclidin-Vilanter [Trelegy Ellipta] 200-62.5-25 mcg INH SCH (09:13)
[2022-04-01] MEDS: INSULIN LISPRO 100 UNIT/ML SUBCUT SCH ×4 (09:40→21:18)
[2022-04-01] MEDS: SACUBITRIL/VALSARTAN 49-51 MG TABLET PO SCH ×2 (09:40→21:17)
[2022-04-01] MEDS: METOPROLOL SUCCINATE XL 25 MG TABLET PO SCH ×2 (09:40→21:19)
[2022-04-02] MEDS: ALBUTEROL/IPRATROPIUM 3 ML NEB RESP TX SCH ×4 (00:50→19:12)
[2022-04-02] MEDS: LEVOTHYROXINE 125 MCG TABLET PO SCH (06:42)
[2022-04-02] MEDS: INSULIN LISPRO 100 UNIT/ML SUBCUT SCH ×4 (07:57→21:20)
[2022-04-02] MEDS: SACUBITRIL/VALSARTAN 49-51 MG TABLET PO SCH ×2 (08:45→21:18)
[2022-04-02] MEDS: PANTOPRAZOLE 40 MG TABLET PO SCH (08:46)
[2022-04-02] MEDS: ENOXAPARIN 40 MG/0.4 ML SYRINGE SUBCUT SCH (08:46)
[2022-04-02] MEDS: DAPAGLIFLOZIN 10 MG TABLET PO SCH (08:46)
[2022-04-02] MEDS: predniSONE 20 MG TABLET PO SCH (08:46)
[2022-04-02] MEDS: METOPROLOL SUCCINATE XL 25 MG TABLET PO SCH ×2 (08:46→21:18)
[2022-04-02] MEDS: NON-FORMULARY MEDICATION (Fluticasone-Umeclidin-Vilanter [Trelegy Ellipta] 200-62.5-25 mcg INH SCH (08:47)
[2022-04-02] MEDS: CHOLECALCIFEROL 5,000 UNIT TABLET PO SCH (11:06)
[2022-04-03] MEDS: ALBUTEROL/IPRATROPIUM 3 ML NEB RESP TX SCH ×4 (00:33→19:23)
[2022-04-03] MEDS: LEVOTHYROXINE 125 MCG TABLET PO SCH (06:01)
[2022-04-03] MEDS: INSULIN LISPRO 100 UNIT/ML SUBCUT SCH ×4 (08:21→22:00)
[2022-04-03] MEDS: SACUBITRIL/VALSARTAN 49-51 MG TABLET PO SCH ×2 (08:57→20:57)
[2022-04-03] MEDS: PANTOPRAZOLE 40 MG TABLET PO SCH (08:57)
[2022-04-03] MEDS: predniSONE 20 MG TABLET PO SCH (08:57)
[2022-04-03] MEDS: CHOLECALCIFEROL 5,000 UNIT TABLET PO SCH (08:57)
[2022-04-03] MEDS: DAPAGLIFLOZIN 10 MG TABLET PO SCH (08:57)
[2022-04-03] MEDS: METOPROLOL SUCCINATE XL 25 MG TABLET PO SCH ×2 (08:57→20:58)
[2022-04-03] MEDS: NON-FORMULARY MEDICATION (Fluticasone-Umeclidin-Vilanter [Trelegy Ellipta] 200-62.5-25 mcg INH SCH (08:57)
[2022-04-03] MEDS: ENOXAPARIN 40 MG/0.4 ML SYRINGE SUBCUT SCH (08:58)
[2022-04-04] MEDS: ALBUTEROL/IPRATROPIUM 3 ML NEB RESP TX SCH ×3 (00:30→13:30)
[2022-04-04] MEDS: LEVOTHYROXINE 125 MCG TABLET PO SCH (05:52)
[2022-04-04] MEDS: INSULIN LISPRO 100 UNIT/ML SUBCUT SCH ×3 (07:50→16:43)
[2022-04-04] MEDS: DAPAGLIFLOZIN 10 MG TABLET PO SCH (08:45)
[2022-04-04] MEDS: predniSONE 20 MG TABLET PO SCH (08:45)
[2022-04-04] MEDS: CHOLECALCIFEROL 5,000 UNIT TABLET PO SCH (08:45)
[2022-04-04] MEDS: ENOXAPARIN 40 MG/0.4 ML SYRINGE SUBCUT SCH (08:46)
[2022-04-04] MEDS: PANTOPRAZOLE 40 MG TABLET PO SCH (08:46)
[2022-04-04] MEDS: METOPROLOL SUCCINATE XL 25 MG TABLET PO SCH (08:46)
[2022-04-04] MEDS: NON-FORMULARY MEDICATION (Fluticasone-Umeclidin-Vilanter [Trelegy Ellipta] 200-62.5-25 mcg INH SCH (08:55)
[2022-04-04] MEDS: SACUBITRIL/VALSARTAN 49-51 MG TABLET PO SCH (09:09)
[2022-04-04 12:38] VITALS: BP 91/52
== END 2022-04-04 16:32 | disposition home health service (06) | DRG 199 ==
LOC: EDBD → EDUNIT# → N.ED 07:19 → SUATTDRO 08:47 → N.EDINP 08:47 → N.CC 09:19 → N.3E 03-18 15:47
PROVIDERS: ADMIT Family Medicine; ATTEND Internal Medicine

== ENCOUNTER 2022-05-30 18:23 | Inpatient (IN) ==
[2022-05-30] MEDS ORDERED: ONDANSETRON 4 MG/2 ML VIAL IV STA (19:03)
[2022-05-30] MEDS ORDERED: methylPREDNISolone SOD SUC 125 MG/2 ML VIAL IV STA (19:03)
[2022-05-30] MEDS ORDERED: ALBUTEROL/IPRATROPIUM 3 ML NEB RESP TX STA (19:03)
[2022-05-30] MEDS ORDERED: SODIUM CHLORIDE 0.9% 1,000 ML IV STA (19:03)
[2022-05-30] MEDS ORDERED: ADENOSINE 6 MG/2 ML VIAL ONE (19:09)
[2022-05-30] MEDS ORDERED: DILTIAZEM 25 MG/5 ML VIAL IV ONE (19:11)
[2022-05-30 19:14] LABS: Basophils % 0.2 % (0.0-0.8); Hematocrit 41.9 VOL% (35.7-47.0); Hemoglobin 13.2 GM/DL (12.0-16.0); Immature Granulocytes % 1.2 %; Immature Granulocytes Absolute 0.27 #; Lymphocytes # 0.9 10*3/uL (1.4-4.0); Lymphocytes % 4.1 % (21.3-54.2); Mean Corpuscular HGB Conc 31.5 GM/DL (32-36); Mean Corpuscular Volume 89.7 FL (87-102); Mean Platelet Volume 9.3 FL (9.6-12.0); Monocytes # 0.4 10*3/uL (0.11-0.8); Monocytes % 1.9 % (1.7-12.7); Neutrophils % 92.6 % (38.7-73.9); Platelet Count 322 T/CUMM (130-400); Red Blood Count 4.67 MC/CUMM (3.8-5.5); Red Cell Distribution Width 14.4 % (9.3-17.3); White Blood Count 22.7 T/CUMM (4-12)
[2022-05-30] MEDS ORDERED: DILTIAZEM 25 MG/5 ML VIAL IV STA (19:16)
[2022-05-30] MEDS ORDERED: PIPERACILLIN/TAZOBACTAM 3,375 MG in SODIUM CHLORIDE 0.9% 100 ML IV STA (19:30)
[2022-05-30 19:33] LABS: Alanine Aminotransferase 14 U/L (13-56); Alkaline Phosphatase 90 U/L (45-117); Aspartate Amino Transferase 14 U/L (0-37); Blood Urea Nitrogen 22 MG/DL (7-18); Calcium 8.9 MG/DL (8.5-10.1); Carbon Dioxide 21 MMOL/L (21-32); Chloride 101 MMOL/L (98-107); Glucose 128 MG/DL (74-106); Osmolality,Calculated 272.2 MOS/KG (273-304); Potassium 3.7 MMOL/L (3.5-5.1); Sodium 134 MMOL/L (136-145); Total Protein 6.7 G/DL (6.4-8.2)
[2022-05-30 19:36] LABS: Band Neutrophils 7 % (0-10); Lymphocytes 7 % (20-55); Total Cells Counted 100
[2022-05-30 19:37] LABS: Platelet Estimate Adequate
[2022-05-30] MEDS ORDERED: SODIUM CHLORIDE 0.9% 1,400 ML IV ONE (19:37)
[2022-05-30 20:15] LABS: Arterial Base Excess iSTAT -6 MMOL/L (-2.5-2.5); Arterial Bicarbonate iSTAT 17.2 MMOL/L (20-26); Arterial O2 Saturation iSTAT 91 % (95-100); Arterial PCO2 iSTAT 27 MM HG (35-48); Arterial PO2 iSTAT 58 MM HG (80-95); Arterial Total CO2 iSTAT 18 MMO/L (23-27); Arterial pH iSTAT 7.416 (7.35-7.45)
[2022-05-30] MEDS ORDERED: GLUCAGON 1 MG VIAL IM PRN (20:48)
[2022-05-30] MEDS ORDERED: DEXTROSE 10% 250 ML BAG IV PRN (20:48)
[2022-05-30] MEDS ORDERED: ONDANSETRON 4 MG/2 ML VIAL IV PRN (20:48)
[2022-05-30] MEDS ORDERED: MORPHINE 2 MG/1 ML SYRINGE IV PRN (20:48)
[2022-05-30] MEDS ORDERED: SODIUM CHLORIDE 0.9% 1,000 ML IV SCH (21:00)
[2022-05-30] MEDS ORDERED: POTASSIUM CHLORIDE 20 MEQ TABLET PO ONE (21:16)
[2022-05-30 21:23] LABS: Bacteria,Urine Occasional /HPF (Few); Mucus,Urine Occasional /LPF (Occasional); RBC,Urine 40-45 /HPF (0-4); Squamous Epithelial Cell,Urine Occasional /HPF (0-10)
[2022-05-30 21:24] LABS: Bilirubin,Urine Negative (Negative); Blood, Urine Large mg/dL (Negative); Glucose,Urine (UA) >=1000 mg/dL (Negative); Ketones,Urine Negative (Negative); Nitrite,Urine Negative (Negative); Protein,Urine >=300 mg/dL (Negative); Urine Appearance Clear (Clear); Urine Color Yellow (Yellow); Urine Specific Gravity 1.015 (1.001-1.035); Urine Urobilinogen 0.2 eU/dL (<2.0); Urine pH 5.5 (4.5-8.0)
[2022-05-30] MEDS: VANCOMYCIN INJ 750 MG in SODIUM CHLORIDE 0.9% 250 ML IV SCH (22:03)
[2022-05-31] MEDS: ALBUTEROL/IPRATROPIUM 3 ML NEB RESP TX SCH ×4 (00:30→19:24)
[2022-05-31 05:08] LABS: Basophils % 0.2 % (0.0-0.8); Hematocrit 32.7 VOL% (35.7-47.0); Hemoglobin 10.3 GM/DL (12.0-16.0); Immature Granulocytes % 2.4 %; Immature Granulocytes Absolute 0.41 #; Lymphocytes # 0.6 10*3/uL (1.4-4.0); Lymphocytes % 3.5 % (21.3-54.2); Mean Corpuscular HGB Conc 31.5 GM/DL (32-36); Mean Corpuscular Volume 91.9 FL (87-102); Mean Platelet Volume 9.4 FL (9.6-12.0); Monocytes # 0.3 10*3/uL (0.11-0.8); Neutrophils % 91.9 % (38.7-73.9); Platelet Count 234 T/CUMM (130-400); Red Blood Count 3.56 MC/CUMM (3.8-5.5); Red Cell Distribution Width 14.2 % (9.3-17.3); White Blood Count 16.8 T/CUMM (4-12)
[2022-05-31 05:28] LABS: Albumin 2.2 G/DL (3.4-5.0); Bilirubin,Total 1.2 MG/DL (0.20-1.00); Calcium 7.8 MG/DL (8.5-10.1); Osmolality,Calculated 284.1 MOS/KG (273-304); Potassium 4.2 MMOL/L (3.5-5.1); Total Protein 5.8 G/DL (6.4-8.2)
[2022-05-31] MEDS: LEVOTHYROXINE 75 MCG TABLET PO SCH (05:50)
[2022-05-31] MEDS: PIPERACILLIN/TAZOBACTAM 3,375 MG in SODIUM CHLORIDE 0.9% 100 ML IV SCH ×3 (05:50→20:21)
[2022-05-31 06:39] LABS: Band Neutrophils 3 % (0-10); Lymphocytes 3 % (20-55); Platelet Estimate Adequate; Total Cells Counted 100
[2022-05-31] MEDS: CHOLECALCIFEROL 5,000 UNIT TABLET PO SCH (09:02)
[2022-05-31] MEDS: predniSONE 10 MG TABLET PO SCH (09:02)
[2022-05-31] MEDS: PANTOPRAZOLE 40 MG TABLET PO SCH (09:02)
[2022-05-31] MEDS: AZITHROMYCIN INJ 500 MG in SODIUM CHLORIDE 0.9% 250 ML IV SCH (09:02)
[2022-05-31] MEDS: PRASUGREL 10 MG TABLET PO SCH (09:02)
[2022-05-31] MEDS: ASPIRIN EC 81 MG TABLET PO SCH (09:02)
[2022-05-31] MEDS: NON-FORMULARY MEDICATION (Fluticasone-Umeclidin-Vilanter [Trelegy Ellipta] 200-62.5-25 mcg INH SCH (09:05)
[2022-05-31 15:18] LABS: Hematocrit 31.3 VOL% (35.7-47.0); Hemoglobin 9.7 GM/DL (12.0-16.0)
[2022-05-31] MEDS: VANCOMYCIN INJ 750 MG in SODIUM CHLORIDE 0.9% 250 ML IV SCH (15:59)
[2022-05-31] MEDS: ENOXAPARIN 40 MG/0.4 ML SYRINGE SUBCUT SCH (20:21)
[2022-05-31] MEDS: ROSUVASTATIN 20 MG TABLET PO SCH (20:21)
[2022-05-31 22:38] LABS: Hematocrit 31.3 VOL% (35.7-47.0); Hemoglobin 9.8 GM/DL (12.0-16.0)
[2022-06-01] MEDS: ALBUTEROL/IPRATROPIUM 3 ML NEB RESP TX SCH ×4 (00:45→19:00)
[2022-06-01] MEDS: PIPERACILLIN/TAZOBACTAM 3,375 MG in SODIUM CHLORIDE 0.9% 100 ML IV SCH ×3 (04:13→21:50)
[2022-06-01 04:38] LABS: Basophils % 0.1 % (0.0-0.8); Hematocrit 32.1 VOL% (35.7-47.0); Hemoglobin 9.8 GM/DL (12.0-16.0); Immature Granulocytes % 0.8 %; Immature Granulocytes Absolute 0.11 #; Lymphocytes % 7.7 % (21.3-54.2); Mean Corpuscular HGB Conc 30.5 GM/DL (32-36); Mean Corpuscular Volume 93.3 FL (87-102); Mean Platelet Volume 9.8 FL (9.6-12.0); Monocytes # 0.6 10*3/uL (0.11-0.8); Monocytes % 4.4 % (1.7-12.7); Platelet Count 245 T/CUMM (130-400); Red Blood Count 3.44 MC/CUMM (3.8-5.5); Red Cell Distribution Width 14.4 % (9.3-17.3); White Blood Count 13.5 T/CUMM (4-12)
[2022-06-01] MEDS: LEVOTHYROXINE 75 MCG TABLET PO SCH (05:59)
[2022-06-01] MEDS: AZITHROMYCIN INJ 500 MG in SODIUM CHLORIDE 0.9% 250 ML IV SCH (09:00)
[2022-06-01] MEDS: ASPIRIN EC 81 MG TABLET PO SCH (09:01)
[2022-06-01] MEDS: PRASUGREL 10 MG TABLET PO SCH (09:01)
[2022-06-01] MEDS: PANTOPRAZOLE 40 MG TABLET PO SCH (09:01)
[2022-06-01] MEDS: predniSONE 10 MG TABLET PO SCH (09:01)
[2022-06-01] MEDS: CHOLECALCIFEROL 5,000 UNIT TABLET PO SCH (09:01)
[2022-06-01] MEDS: NON-FORMULARY MEDICATION (Fluticasone-Umeclidin-Vilanter [Trelegy Ellipta] 200-62.5-25 mcg INH SCH (09:02)
[2022-06-01 11:53] LABS: Calcium 8.1 MG/DL (8.5-10.1); Osmolality,Calculated 289.8 MOS/KG (273-304); Potassium 3.8 MMOL/L (3.5-5.1)
[2022-06-01] MEDS: VANCOMYCIN INJ 750 MG in SODIUM CHLORIDE 0.9% 250 ML IV SCH (11:58)
[2022-06-01] MEDS: METOPROLOL SUCCINATE XL 25 MG TABLET PO SCH ×2 (15:26→21:50)
[2022-06-01] MEDS: guaiFENesin/DM ER 600-30 MG TABLET PO SCH (21:50)
[2022-06-01] MEDS: ENOXAPARIN 40 MG/0.4 ML SYRINGE SUBCUT SCH (21:50)
[2022-06-01] MEDS: ROSUVASTATIN 20 MG TABLET PO SCH (21:50)
[2022-06-02] MEDS: ALBUTEROL/IPRATROPIUM 3 ML NEB RESP TX SCH ×4 (00:05→19:51)
[2022-06-02 04:38] LABS: Basophils % 0.3 % (0.0-0.8); Eosinophils % 0.2 % (0.00-10.9); Hematocrit 37.3 VOL% (35.7-47.0); Hemoglobin 11.4 GM/DL (12.0-16.0); Immature Granulocytes % 1.3 %; Immature Granulocytes Absolute 0.11 #; Lymphocytes # 1.4 10*3/uL (1.4-4.0); Lymphocytes % 16.5 % (21.3-54.2); Mean Corpuscular HGB Conc 30.6 GM/DL (32-36); Mean Corpuscular Volume 92.8 FL (87-102); Mean Platelet Volume 9.4 FL (9.6-12.0); Monocytes # 0.5 10*3/uL (0.11-0.8); Monocytes % 5.8 % (1.7-12.7); Neutrophils % 75.9 % (38.7-73.9); Platelet Count 293 T/CUMM (130-400); Red Blood Count 4.02 MC/CUMM (3.8-5.5); Red Cell Distribution Width 14.3 % (9.3-17.3); White Blood Count 8.7 T/CUMM (4-12)
[2022-06-02 05:01] LABS: Albumin 2.3 G/DL (3.4-5.0); Bilirubin,Total 0.6 MG/DL (0.20-1.00); Calcium 8.6 MG/DL (8.5-10.1); Osmolality,Calculated 287.7 MOS/KG (273-304); Potassium 3.1 MMOL/L (3.5-5.1); Total Protein 6.2 G/DL (6.4-8.2)
[2022-06-02] MEDS: PIPERACILLIN/TAZOBACTAM 3,375 MG in SODIUM CHLORIDE 0.9% 100 ML IV SCH ×3 (06:17→21:50)
[2022-06-02] MEDS: LEVOTHYROXINE 75 MCG TABLET PO SCH (06:17)
[2022-06-02] MEDS: METOPROLOL SUCCINATE XL 25 MG TABLET PO SCH ×2 (09:40→21:48)
[2022-06-02] MEDS: predniSONE 10 MG TABLET PO SCH (09:40)
[2022-06-02] MEDS: guaiFENesin/DM ER 600-30 MG TABLET PO SCH ×2 (09:40→21:48)
[2022-06-02] MEDS: PRASUGREL 10 MG TABLET PO SCH (09:40)
[2022-06-02] MEDS: AZITHROMYCIN INJ 500 MG in SODIUM CHLORIDE 0.9% 250 ML IV SCH (09:40)
[2022-06-02] MEDS: ASPIRIN EC 81 MG TABLET PO SCH (09:40)
[2022-06-02] MEDS: PANTOPRAZOLE 40 MG TABLET PO SCH (09:40)
[2022-06-02] MEDS: CHOLECALCIFEROL 5,000 UNIT TABLET PO SCH (09:40)
[2022-06-02] MEDS: NON-FORMULARY MEDICATION (Fluticasone-Umeclidin-Vilanter [Trelegy Ellipta] 200-62.5-25 mcg INH SCH (09:41)
[2022-06-02] MEDS: POTASSIUM CHLORIDE 20 MEQ TABLET PO PRN ×4 (11:06→18:49)
[2022-06-02 15:51] LABS: Hematocrit 36.9 VOL% (35.7-47.0); Hemoglobin 11.7 GM/DL (12.0-16.0)
[2022-06-02] MEDS: PANTOPRAZOLE 40 MG VIAL IV SCH (17:01)
[2022-06-02] MEDS ORDERED: INFLUENZA VIRUS VACCINE 0.5 ML SYRINGE IM ONE (19:00)
[2022-06-02] MEDS: ROSUVASTATIN 20 MG TABLET PO SCH (21:48)
[2022-06-03] MEDS: ALBUTEROL/IPRATROPIUM 3 ML NEB RESP TX SCH ×3 (00:12→13:12)
[2022-06-03] MEDS: PIPERACILLIN/TAZOBACTAM 3,375 MG in SODIUM CHLORIDE 0.9% 100 ML IV SCH (04:37)
[2022-06-03 04:48] LABS: Basophils % 0.2 % (0.0-0.8); Eosinophils # 0.1 10*3/uL (0.0-0.87); Eosinophils % 1.1 % (0.00-10.9); Hemoglobin 10.2 GM/DL (12.0-16.0); Immature Granulocytes % 1.3 %; Immature Granulocytes Absolute 0.13 #; Lymphocytes # 1.7 10*3/uL (1.4-4.0); Lymphocytes % 16.9 % (21.3-54.2); Mean Corpuscular HGB Conc 31.9 GM/DL (32-36); Mean Corpuscular Volume 90.4 FL (87-102); Mean Platelet Volume 9.4 FL (9.6-12.0); Monocytes # 0.7 10*3/uL (0.11-0.8); Monocytes % 7.2 % (1.7-12.7); Neutrophils % 73.3 % (38.7-73.9); Platelet Count 265 T/CUMM (130-400); Red Blood Count 3.54 MC/CUMM (3.8-5.5); White Blood Count 10.3 T/CUMM (4-12)
[2022-06-03 05:08] LABS: Calcium 8.3 MG/DL (8.5-10.1); Osmolality,Calculated 280.1 MOS/KG (273-304); Potassium 3.9 MMOL/L (3.5-5.1)
[2022-06-03] MEDS: LEVOTHYROXINE 75 MCG TABLET PO SCH (05:52)
[2022-06-03] MEDS: ASPIRIN EC 81 MG TABLET PO SCH (10:56)
[2022-06-03] MEDS: predniSONE 10 MG TABLET PO SCH (10:56)
[2022-06-03] MEDS: PRASUGREL 10 MG TABLET PO SCH (10:56)
[2022-06-03] MEDS: guaiFENesin/DM ER 600-30 MG TABLET PO SCH (10:56)
[2022-06-03] MEDS: METOPROLOL SUCCINATE XL 25 MG TABLET PO SCH (10:57)
[2022-06-03] MEDS: CHOLECALCIFEROL 5,000 UNIT TABLET PO SCH (10:57)
[2022-06-03] MEDS: NON-FORMULARY MEDICATION (Fluticasone-Umeclidin-Vilanter [Trelegy Ellipta] 200-62.5-25 mcg INH SCH (11:10)
[2022-06-03] MEDS: PANTOPRAZOLE 40 MG VIAL IV SCH (11:19)
[2022-06-03] MEDS: AZITHROMYCIN INJ 500 MG in SODIUM CHLORIDE 0.9% 250 ML IV SCH (11:29)
[2022-06-03 12:16] VITALS: BP 139/80
== END 2022-06-03 14:37 | disposition home health service (06) | DRG 193 ==
LOC: N.ED 18:23 → SUATTDRO 20:48 → N.EDINP 20:48 → N.TELEN 22:45
PROVIDERS: ADMIT Internal Medicine Geriatric Medicine; ATTEND Internal Medicine

== ENCOUNTER 2022-09-18 13:02 | Observation (INO) ==
[2022-09-18 13:29] LABS: Basophils # 0.1 10*3/uL (0.0-0.2); Basophils % 0.6 % (0.0-0.8); Eosinophils # 0.1 10*3/uL (0.0-0.87); Eosinophils % 0.7 % (0.00-10.9); Hematocrit 38.1 VOL% (35.7-47.0); Hemoglobin 11.6 GM/DL (12.0-16.0); Immature Granulocytes % 0.6 %; Immature Granulocytes Absolute 0.06 #; Lymphocytes # 1.5 10*3/uL (1.4-4.0); Lymphocytes % 15.4 % (21.3-54.2); Mean Corpuscular HGB Conc 30.4 GM/DL (32-36); Mean Corpuscular Volume 83.6 FL (87-102); Mean Platelet Volume 9.8 FL (9.6-12.0); Monocytes # 0.5 10*3/uL (0.11-0.8); Monocytes % 4.9 % (1.7-12.7); Neutrophils % 77.8 % (38.7-73.9); Platelet Count 272 T/CUMM (130-400); Red Blood Count 4.56 MC/CUMM (3.8-5.5); White Blood Count 9.7 T/CUMM (4-12)
[2022-09-18] MEDS ORDERED: ASPIRIN 325 MG TABLET PO STA (13:30)
[2022-09-18] MEDS ORDERED: METOPROLOL TARTRATE 5 MG/5 ML VIAL IV STA ×2 (13:31→13:49)
[2022-09-18 13:50] LABS: Bilirubin,Total 0.8 MG/DL (0.20-1.00); Calcium 9.2 MG/DL (8.5-10.1); Potassium 3.4 MMOL/L (3.5-5.1); Total Protein 7.3 G/DL (6.4-8.2)
[2022-09-18] MEDS ORDERED: CALCIUM CARBONATE CHEW 500 MG TABLET PO PRN (14:51)
[2022-09-18] MEDS ORDERED: SIMETHICONE CHEW 125 MG TABLET PO PRN (14:51)
[2022-09-18] MEDS ORDERED: ACETAMINOPHEN 325 MG TABLET PO PRN (14:51)
[2022-09-18] MEDS ORDERED: ZALEPLON 5 MG CAPSULE PO PRN (14:51)
[2022-09-18] MEDS ORDERED: diphenhydrAMINE CAP 25 MG CAPSULE PO PRN (14:51)
[2022-09-18] MEDS ORDERED: DOCUSATE SODIUM 100 MG CAPSULE PO PRN (14:51)
[2022-09-18] MEDS ORDERED: ONDANSETRON 4 MG/2 ML VIAL IV PRN (14:51)
[2022-09-18] MEDS ORDERED: LACTULOSE 20 GM/30 ML UDCUP PO PRN (14:51)
[2022-09-18] MEDS ORDERED: MORPHINE 2 MG/1 ML SYRINGE IV PRN (14:51)
[2022-09-18] MEDS ORDERED: ALUMINUM/MAGNES/SIMETH MAX STR 30 ML UDCUP PO PRN (14:51)
[2022-09-18] MEDS ORDERED: ALBUTEROL 2.5 MG/3 ML NEB RESP TX PRN (14:55)
[2022-09-18] MEDS ORDERED: MAGNESIUM SULF RIDER 2 GM/50 ML PREMIX IV ONE (15:09)
[2022-09-18] MEDS ORDERED: POTASSIUM CHLORIDE 20 MEQ TABLET PO STA (15:09)
[2022-09-18 15:22] LABS: INR 0.9; PT Patient Result 10.1 SECS (10.1-12.1); Partial Thromboplastin Time 23.6 SECS (23.7-32.9)
[2022-09-18] MEDS ORDERED: ENOXAPARIN 40 MG/0.4 ML SYRINGE SUBCUT SCH (21:00)
[2022-09-18] MEDS ORDERED: ROSUVASTATIN 20 MG TABLET PO SCH (21:00)
[2022-09-18] MEDS ORDERED: METOPROLOL SUCCINATE XL 25 MG TABLET PO SCH (21:00)
[2022-09-18] MEDS: METOPROLOL SUCCINATE XL 50 MG TABLET PO SCH (21:16)
[2022-09-18] MEDS: SACUBITRIL/VALSARTAN 49-51 MG TABLET PO SCH (21:24)
[2022-09-19 05:52] LABS: Basophils # 0.1 10*3/uL (0.0-0.2); Basophils % 0.7 % (0.0-0.8); Eosinophils # 0.2 10*3/uL (0.0-0.87); Eosinophils % 2.2 % (0.00-10.9); Hematocrit 34.6 VOL% (35.7-47.0); Hemoglobin 10.1 GM/DL (12.0-16.0); Immature Granulocytes % 0.3 %; Immature Granulocytes Absolute 0.02 #; Lymphocytes # 2.5 10*3/uL (1.4-4.0); Lymphocytes % 36.3 % (21.3-54.2); Mean Corpuscular HGB Conc 29.2 GM/DL (32-36); Mean Corpuscular Volume 85.9 FL (87-102); Mean Platelet Volume 9.8 FL (9.6-12.0); Monocytes # 0.6 10*3/uL (0.11-0.8); Monocytes % 9.4 % (1.7-12.7); Neutrophils % 51.1 % (38.7-73.9); Platelet Count 263 T/CUMM (130-400); Red Blood Count 4.03 MC/CUMM (3.8-5.5); Red Cell Distribution Width 16.1 % (9.3-17.3); White Blood Count 6.8 T/CUMM (4-12)
[2022-09-19 07:55] LABS: Calcium 8.3 MG/DL (8.5-10.1); Osmolality,Calculated 292.7 MOS/KG (273-304); Potassium 4.6 MMOL/L (3.5-5.1); Risk Ratio 1.76; Thyroid Stimulating Hormone 0.188 uIU/ml (0.358-3.74); VLDL Cholesterol 9.2 MG/DL
[2022-09-19] MEDS: SACUBITRIL/VALSARTAN 49-51 MG TABLET PO SCH (08:38)
[2022-09-19] MEDS: METOPROLOL SUCCINATE XL 50 MG TABLET PO SCH (08:39)
[2022-09-19] MEDS ORDERED: PANTOPRAZOLE 40 MG TABLET PO SCH (09:00)
[2022-09-19] MEDS ORDERED: CHOLECALCIFEROL 5,000 UNIT TABLET PO SCH (09:00)
[2022-09-19] MEDS ORDERED: ASPIRIN EC 81 MG TABLET PO SCH (09:00)
[2022-09-19] MEDS ORDERED: LEVOTHYROXINE 75 MCG TABLET PO SCH (09:00)
[2022-09-19] MEDS ORDERED: PRASUGREL 10 MG TABLET PO SCH (09:00)
[2022-09-19] MEDS ORDERED: predniSONE 10 MG TABLET PO SCH (09:00)
[2022-09-19] MEDS ORDERED: NON-FORMULARY MEDICATION (Fluticasone-Umeclidin-Vilanter [Trelegy Ellipta] 200-62.5-25 mcg INH SCH (09:00)
[2022-09-19] MEDS ORDERED: DAPAGLIFLOZIN 10 MG TABLET PO SCH (09:00)
[2022-09-19] MEDS ORDERED: FUROSEMIDE 40 MG TABLET PO SCH (09:00)
[2022-09-19 11:36] VITALS: BP 88/32
[2022-09-20] MEDS ORDERED: LEVOTHYROXINE 50 MCG TABLET PO SCH (09:00)
== END 2022-09-19 14:30 | disposition home or self-care (01) ==
LOC: EDUNIT# → N.ED 13:02 → N.EDINP 13:02 → N.2W 17:17
PROVIDERS: ADMIT Internal Medicine Cardiovascular Disease; ATTEND Internal Medicine Cardiovascular Disease